=== PATIENT | female | born 1990 | race Hispanic/Latino ===

== ENCOUNTER 2018-05-24 04:24 | Inpatient (IN) ==
[2018-05-24 05:08] LABS: URINE SOURCE VOIDED
[2018-05-24] MEDS ORDERED: ZOFRAN IV PRN (05:14)
[2018-05-24] MEDS ORDERED: PEPCID PO PRN (05:14)
[2018-05-24] MEDS ORDERED: PEPCID IV PRN (05:14)
[2018-05-24] MEDS ORDERED: TYLENOL PO PRN (05:14)
[2018-05-24] MEDS ORDERED: REGLAN PO ONE (05:14)
[2018-05-24] MEDS ORDERED: AMPICILLIN 2 GM/NS 2 GM/100 ML IVPB IV ONE (05:14)
[2018-05-24] MEDS ORDERED: STADOL IV PRN (05:14)
[2018-05-24] MEDS ORDERED: KEFZOL 1 GM/D5W 1 GM/50 ML IVPB IV PRN (05:14)
[2018-05-24] MEDS ORDERED: LR 500 ML IV ONE (05:14)
[2018-05-24] MEDS ORDERED: PEPCID PO ONE (05:14)
[2018-05-24] MEDS ORDERED: SODIUM CHLORIDE 0.9% INJ SCH (05:15)
[2018-05-24] MEDS ORDERED: PITOCIN 30 UNITS/NS 30 UNIT/500 ML IV.SOLN IV SCH ×2 (05:15→09:15)
[2018-05-24] MEDS: LR 1,000 ML IV SCH ×2 (05:20→06:47)
--- NOTE | 2018-05-24 05:21 | OB/GYN PROGRESS NOTE ---
Progress Note OB - . OB Progress Note: Vital Signs - 24 hr 05/24/18 04:31 05/24/18 04:47 Temperature 97.6 F Pulse Rate 60 Respiratory Rate 18 Blood Pressure 134/88 O2 Sat by Pulse Oximetry 100 Laboratory Results - last 24 hr 05/23/18 04:30 Urine Source VOIDED OB TRIAGE 28 year old presents with contractions, no rupture of membranes. NO care Abdomen measures 36 weeks Plan admission to labor and delivery See dictated H and P
[2018-05-24] MEDS ORDERED: PITOCIN 30 UNITS/NS 30 UNIT/500 ML IV.SOLN ONE (05:41)
[2018-05-24 05:42] LABS: UR AMPHETAMINES QUAL NONE DETECTED (NONE DETECT); UR BARBITUATES QUAL NONE DETECTED (NONE DETECT); UR BENZODIAZEPIN QUAL NONE DETECTED (NONE DETECT); UR CANNABINOIDS QUAL NONE DETECTED (NONE DETECT); UR COCAINE QUAL NONE DETECTED (NONE DETECT); UR METHADONE QUAL NONE DETECTED (NONE DETECT); UR METHAMPHETAMINE QUAL NONE DETECTED (NONE DETECT); UR OPIATES QUAL NONE DETECTED (NONE DETECT); UR OXYCODONE QUAL NONE DETECTED (NONE DETECT); UR PCP QUAL NONE DETECTED (NONE DETECT); UR PROPOXYPHENE QUAL NONE DETECTED (NONE DETECT); UR TCA QUAL NONE DETECTED (NONE DETECT)
[2018-05-24 05:43] LABS: BILIRUBIN URINE NEGATIVE (NEGATIVE); BLOOD URINE 2+ (NEGATIVE); CLARITY CLEAR (CLEAR); COLOR YELLOW; GLUCOSE URINE NEGATIVE (NEGATIVE); KETONE URINE NEGATIVE (NEGATIVE); LEUKOCYTES URINE TRACE (NEGATIVE); NITRITE URINE NEGATIVE (NEGATIVE); PROTEIN URINE NEGATIVE (NEGATIVE); UROBILINOGEN URINE NORMAL
[2018-05-24 06:23] LABS: BASO# 0.02 X1000 (0.0-0.2); BASO% 0.2 % (0.0-0.8); EOS% 2.1 % (0.0-10.0); HEMATOCRIT 37.4 % (37.0-47.0); HEMOGLOBIN 12.9 g/dL (12.0-16.0); IMM GRAN# 0.04 X1000 (0.0-0.04); IMM GRAN% 0.4 % (0.0-0.5); LYMPH# 3.05 X1000 (1.2-3.4); LYMPH% 32.3 % (20.5-51.1); MCH 31.7 PG (27-31); MCHC 34.5 g/dL (33-37); MCV 91.9 FL (81-99); MONO# 0.79 X1000 (0.11-0.59); MONO% 8.4 % (1.7-9.3); MPV 10.3 FL (7.4-10.4); NEUT# 5.34 X1000 (1.4-6.5); NEUT% 56.6 % (42.2-75.2); PLT 266 X1000 (130-400); RBC 4.07 XMIL (4.2-5.4); RDW 12.1 % (11.5-14.5); WBC 9.44 X1000 (4.8-10.8)
--- NOTE | 2018-05-24 06:58 | HISTORY AND PHYSICAL ---
The patient is a 28-year-old , with an IUP of unknown dates, who presents with contractions. The patient reports that she by her last menstrual, she is approximately 35 weeks, by her due date given by an ultrasound that was done early in the she is approximately 2 weeks post dates. However, her abdomen measures approximately 36 weeks. The patient has had no care. She reports that she started cristóbal about 2 hours ago, came into the hospital for evaluation. She has no other complaints. No rupture of membranes. No nausea, no vomiting. No headaches. PHYSICAL EXAMINATION: VITAL SIGNS: The patient is afebrile. Vital signs are stable. GENERAL: She is awake, alert, oriented, in moderate distress with contractions. HEENT: Patient is normocephalic, atraumatic. CARDIOVASCULAR: S1, S2 are normal. LUNGS: Clear. ABDOMEN: Gravid uterus approximately 36 weeks. EXTREMITIES: No edema. GENITOURINARY: Cervical exam, patient is 6 cm, 90% effaced, vertex. No care or labs. ASSESSMENT AND PLAN: Intrauterine at approximately 36 weeks, labor. Plan is to admit to Labor and Delivery. Start IV antibiotic for GBS unknown. Expect vaginal delivery. The patient has been counseled and consented for vaginal delivery on the language line. The patient is Macanese speaking. speaks a little Luxembourgish, language line used for translation. cc: Polo Sosa MD
[2018-05-24 07:18] LABS: RAPID HIV PRESUMPTIVE NEGATIVE; RPR NON-REACTIVE (NONREACTIVE)
[2018-05-24] MEDS ORDERED: PITOCIN 20 UNITS/NS 20 UNITS/1,000 ML IV.SOLN SCH (08:30)
--- NOTE | 2018-05-24 08:43 | OPERATIVE NOTE ---
PROCEDURE DATE: 05/24/2018 PREOPERATIVE DIAGNOSIS: Intrauterine at 36 weeks. No care. GBS unknown. POSTOPERATIVE DIAGNOSIS: Intrauterine at term. No care. GBS unknown. HISTORY: This is a 28-year-old, G3, now P3, who presented in spontaneous labor around 4:30 this morning with complaints of rupture of membranes around 3 a.m. She had a normal spontaneous labor, dilated to complete 100%, +1 station. The patient pushed and delivered a baby who was MALAIKA. The head was delivered, followed by the anterior shoulder and the posterior shoulder. Moderately thick meconium was noted during the delivery. Baby was placed on the maternal abdomen. The cord was clamped and cut after the infant was suctioned. The was then handed off to the waiting nursing staff. The placenta was then delivered by Schultze presentation. The patient had no tears. Uterus responded well to massage and Pitocin. She is recovering well in the Labor and Delivery recovery room. EBL was 300 mL. cc: DO Polo Velazquez MD MTDD
[2018-05-24] MEDS ORDERED: PERI MEDS (DERMOPLAST/NUPERCAINAL/TUCKS) MISC PRN (09:05)
[2018-05-24] MEDS ORDERED: BENADRYL PO PRN (09:05)
[2018-05-24] MEDS ORDERED: XYLOCAINE-MPF 1% INJ PRN (09:05)
[2018-05-24] MEDS ORDERED: PITOCIN IM PRN (09:05)
[2018-05-24] MEDS ORDERED: BOOSTRIX VACCINE IM ONE (09:05)
[2018-05-24] MEDS ORDERED: HYDROXYZINE IM PRN (09:05)
[2018-05-24] MEDS ORDERED: ATARAX PO PRN (09:05)
[2018-05-24] MEDS ORDERED: M-M-R II VACCINE SUBQ ONE (09:05)
[2018-05-24] MEDS ORDERED: CYTOTEC PO PRN (09:05)
[2018-05-24] MEDS ORDERED: BENADRYL IV PRN (09:05)
[2018-05-24] MEDS ORDERED: AMBIEN PO PRN (09:05)
[2018-05-24] MEDS ORDERED: AMPICILLIN 1 GM/NS 1 GM/50 ML IVPB IV SCH (09:16)
[2018-05-24 14:57] LABS: RUBELLA SCREEN IMMUNE (IMMUNE)
[2018-05-24] MEDS: MOTRIN PO PRN (19:17)
[2018-05-24] MEDS: NORCO-5 PO PRN ×2 (19:17→23:28)
[2018-05-24] MEDS: PERICOLACE PO SCH (21:12)
[2018-05-25] MEDS: NORCO-5 PO PRN ×2 (03:40→14:57)
[2018-05-25] MEDS: MOTRIN PO PRN ×3 (03:40→22:28)
[2018-05-25 06:02] LABS: BASO# 0.02 X1000 (0.0-0.2); BASO% 0.2 % (0.0-0.8); EOS# 0.14 X1000 (0.0-0.7); EOS% 1.5 % (0.0-10.0); HEMATOCRIT 30.4 % (37.0-47.0); HEMOGLOBIN 10.3 g/dL (12.0-16.0); IMM GRAN# 0.06 X1000 (0.0-0.04); IMM GRAN% 0.6 % (0.0-0.5); LYMPH# 3.29 X1000 (1.2-3.4); LYMPH% 35.2 % (20.5-51.1); MCH 32.1 PG (27-31); MCHC 33.9 g/dL (33-37); MCV 94.7 FL (81-99); MONO# 0.77 X1000 (0.11-0.59); MONO% 8.2 % (1.7-9.3); MPV 9.8 FL (7.4-10.4); NEUT# 5.06 X1000 (1.4-6.5); NEUT% 54.3 % (42.2-75.2); PLT 212 X1000 (130-400); RBC 3.21 XMIL (4.2-5.4); RDW 12.3 % (11.5-14.5); WBC 9.34 X1000 (4.8-10.8)
[2018-05-25] MEDS: FERROUS SULFATE PO SCH (08:55)
[2018-05-25] MEDS: PRECARE PO SCH (08:55)
[2018-05-25] MEDS: PERICOLACE PO SCH (22:28)
[2018-05-26] MEDS: NORCO-5 PO PRN ×2 (00:24→08:37)
[2018-05-26 02:22] LABS: HIV ANTIBODY SCREEN SEE COMMENTS
--- NOTE | 2018-05-26 07:50 | DISCHARGE SUMMARY ---
ADMISSION DATE: 05/24/2018 DISCHARGE DATE: 05/26/2018 HISTORY: The patient was admitted as a 28-year-old G3, P2 with an intrauterine of unknown date delivered of a normal spontaneous vaginal delivery of a live viable male . The patient's course was unremarkable. She ambulated without problems. Lochia was less than menses. DISCHARGE EXAMINATION: Vital Signs: Temperature 96.5 degrees, blood pressure 107/57, O2 sats 97 on room air, and respirations 18. General: Patient is awake, alert, and oriented x3 in no apparent distress. HEENT: Patient is normocephalic and atraumatic. CV: S1, S2 normal. Lungs:Clear. Abdomen: The uterus is firm. Fundus palpable below the umbilicus. Positive bowel sounds. Extremities: No edema. REVIEW OF SYSTEMS: Negative. Lochia is less than menses. ASSESSMENT AND PLAN: day #2 status post normal spontaneous vaginal delivery. The patient is progressing well to the period. Plan is to discharge home today in stable condition. MEDICATIONS: Motrin for pain. The patient to continue taking her vitamins. FOLLOW UP: She is to follow up with Dr. Sweeney in 6 weeks for routine care. cc: Polo Sosa MD MTDD
[2018-05-26 08:03] VITALS: BP 121/72
[2018-05-26 08:07] LABS: HEPATITIS B SURFACE ANTIGEN SEE COMMENTS
[2018-05-26] MEDS: MOTRIN PO PRN (08:37)
[2018-05-26] MEDS: FERROUS SULFATE PO SCH (08:37)
[2018-05-26] MEDS: PRECARE PO SCH (08:37)
[2018-05-26] MEDS: FLU VACCINE IM ONE ×2 (08:39→08:41)
== END 2018-05-26 12:48 | disposition home or self-care (01) | DRG 807 ==
LOC: P.OPLD 04:24 → P.LD 04:27
PROVIDERS: ADMIT Obstetrics & Gynecology; ATTEND Obstetrics & Gynecology
CPT/HCPCS: 80104; 80301; 80305; 81003; 82947; 84112; 85025; 86592; 86701; 86703; 86762; 86850; 86900; 86901; 87340; 87389; 87390; 87491; 87591; 90686; 90715; A9270; G0431; G0434; G0477; J0290; J0595; J2590; J7120